=== PATIENT | female | born 1960 | race Caucasian/White ===

== ENCOUNTER 2016-11-21 02:53 | Emergency (ER) | payer SELFPAY ==
[2016-11-21] MEDS ORDERED: DEXAMETHASONE SOD PHOSPHATE 10 MG/1 ML VIAL IVPUSH ONE (03:15)
[2016-11-21 03:22] VITALS: BMI 32.2
[2016-11-21] MEDS ORDERED: SODIUM CHLORIDE 0.9% 1000 ML INFUS.BAG IV ONE ×2 (03:26→03:52)
[2016-11-21 03:30] LABS: BASOPHIL 0.3 % (0-2.0); EOSINOPHIL 1.9 % (0-4.5); MCH 32.2 pg (25.7-33.7); MCHC 34.1 g/dl (32.0-36.0); MEAN CELL VOLUME 94.6 fl (80-96); MEAN PLT VOLUME 7.8 fl (7.5-11.1); NEUTROPHILS 35.6 % (42.8-82.8); PLATELET COUNT 295 K/MM3 (134-434); WHITE BLOOD COUNT 11.5 K/mm3 (4.0-10.0)
[2016-11-21] MEDS ORDERED: DEXAMETHASONE SOD PHOSPHATE 10 MG/1 ML VIAL ONE ×2 (03:37→03:38)
[2016-11-21 03:49] LABS: PROTHROMBIN TIME (PATIENT) 11.3 SEC (9.98-11.88)
[2016-11-21 03:59] LABS: ALBUMIN 3.6 g/dl (3.4-5.0); ANION GAP 14 (8-16); BILIRUBIN,TOTAL 0.3 mg/dL (0.2-1.0); CALCIUM 8.5 mg/dL (8.5-10.1); CO2 23 mmol/L (21-32); CREATININE 0.6 mg/dL (0.55-1.02); GLUCOSE,RANDOM 165 mg/dL (74-106); SGOT/AST 30 U/L (15-37); SGPT/ALT 40 U/L (12-78); TOT PROT 6.8 g/dl (6.4-8.2)
[2016-11-21 04:02] LABS: ALK PHOS 124 U/L (45-117); CPK 318 IU/L (26-192); TROPONIN I 0.02 ng/ml (0.00-0.05)
[2016-11-21] MEDS ORDERED: KCL 10 MEQ IVPB 100 ML IVPB SCH (04:15)
[2016-11-21] MEDS ORDERED: KCL 10 MEQ IVPB 300 ML IVPB ONE (05:04)
--- NOTE | 2016-11-21 05:08 | PDOC ---
History of Present Illness - General Chief Complaint: Syncope/Near Syncope Stated Complaint: HIVES/REDNESS TO SKIN/RASH Time Seen by Provider: 11/21/16 03:00 - History of Present Illness Initial Comments: 11/21/16 04:59 CHIEF COMPLAINT: allergic reaction HISTORY OF PRESENT ILLNESS: 56 yo F with no significant PMH presents to ED with rash and syncopal episode while in waiting room of ED. Patient's family is at bedside and reports that she was having some lower abdominal pain today so she took one pill of her 's Flagyl. Not longer after ingesting the single pill, patient developed a significant rash to her entire body and came to the ER. While in the ER waiting room patient went to the bathroom, patient had a syncopal episode and fell and hit her head resulting in a small laceration to her R browbone. No recent travel or sick contacts. PAST MEDICAL HISTORY: Denies past medical history FAMILY HISTORY: Denies SOCIAL HISTORY:Denies tobacco, alcohol, illicit drug use. SURGICAL HISTORY: Denies ALLERGIES: No known drug allergies REVIEW OF SYSTEMS General/Constitutional: Denies fever or chills. Denies weakness, weight change. HEENT: Denies change in vision. Denies ear pain or discharge. Denies sore throat. Cardiovascular: Denies chest pain or shortness of breath. Respiratory: Denies cough, wheezing, or hemoptysis. Gastrointestinal: Denies nausea, vomiting, diarrhea or constipation. Denies rectal bleeding. Genitourinary: Denies dysuria, frequency, or change in urination. Musculoskeletal: Denies joint or muscle swelling or pain. Denies neck or back pain. Skin: Rash after taking Flagyl. Neurologic: Denies headache, vertigo, loss of consciousness, or loss of sensation. PHYSICAL EXAM General Appearance: Weak, lethargic appearing. No apparent distress. HEENT: No ulcerations to mucous membranes. EOMI, PERRLA, normal ENT inspection, normal voice, TMs normal, pharynx normal. No conjunctival pallor. No photophobia, scleral icterus. Neck: Supple. Trachea midline. No tenderness, rigidity, carotid bruit, stridor , lymphadenopathy, or thyromegaly. Respiratory/Chest: Lungs CTAB. Cardiovascular: RRR. S1, S2. Vascular Pulses: Dorsalis-Pedis (R): 2+, Dorsalis-Pedis (L): 2+ Gastrointestinal/Abdominal: Normal bowel sounds. Abdomen soft, non-distended. No tenderness or rebound tenderness. No organomegaly, pulsatile mass, guarding , hernia, hepatomegaly, splenomegaly. Musculoskeletal/Extremities: Normal inspection. FROM of all extremities, normal capillary refill. Pelvis Stable. No CVA tenderness. No tenderness to extremities, pedal edema, swelling, erythema or deformity. Integumentary: Erythematous, warm, generalized rash to face, chest, and lower extremities. Superficial 0.75 cm laceration to R browbone, no active bleeding. Appropriate color, dry, warm. No cyanosis, erythema, jaundice or rash Neurologic: quantitative equity head II-XII intact. Fully oriented, alert. Appropriate mood/affect. Motor strength 5/5. No appreciable EOM palsy, facial droop or sensory deficit. Past History - Past Medical History Allergies/Adverse Reactions: Allergies Allergy/AdvReac Type Severity Reaction Status Date / Time metronidazole [From Flagyl] Allergy Verified 11/21/16 05:41 Home Medications: Ambulatory Orders NK [No Known Home Medication] 11/21/16 - Suicide/Smoking/Psychosocial Hx Smoking Status: No Smoking History: Never smoked Number of Cigarettes Smoked Daily: 0 Hx Alcohol Use: No Drug/Substance Use Hx: No *Physical Exam - Vital Signs Last Vital Signs Temp Pulse Resp BP Pulse Ox 98.7 F 67 18 76/57 100 11/21/16 03:14 11/21/16 03:14 11/21/16 03:14 11/21/16 03:14 11/21/16 03:14 Heart Score/ECG Review - History History: Slightly suspicious - Electrocardiogram EKG: Normal - Age Age: 45-65 ED Treatment Course - LABORATORY CBC & Chemistry Diagram: 11/21/16 03:18 11/21/16 03:18 - ADDITIONAL ORDERS Additional order review: Laboratory Results 11/21/16 11/21/16 11/21/16 03:18 03:18 03:18 PT with INR INR Sodium Potassium Chloride Carbon Dioxide Anion Gap BUN Creatinine Creat Clearance w eGFR Random Glucose Lactic Acid 2.9 H* Calcium Magnesium 2.2 Total Bilirubin AST ALT Alkaline Phosphatase Creatine Kinase Troponin I Total Protein Albumin Blood Type O POSITIVE Antibody Screen Negative 11/21/16 11/21/16 03:18 03:18 PT with INR 11.30 INR 1.00 Sodium 140 Potassium 3.3 L Chloride 103 Carbon Dioxide 23 Anion Gap 14 BUN 13 D Creatinine 0.6 D Creat Clearance w eGFR > 60 Random Glucose 165 H D Lactic Acid Calcium 8.5 Magnesium Total Bilirubin 0.3 D AST 30 ALT 40 D Alkaline Phosphatase 124 H Creatine Kinase 318 H Troponin I 0.02 Total Protein 6.8 Albumin 3.6 Blood Type Antibody Screen 11/21/16 03:18 RBC 4.40 MCV 94.6 MCHC 34.1 RDW 13.0 MPV 7.8 Neutrophils % 35.6 L D Lymphocytes % 54.5 H D Monocytes % 7.7 Eosinophils % 1.9 Basophils % 0.3 - RADIOLOGY Radiology Studies Ordered: Category Date Time Status CHEST X-RAY PORTABLE* [RAD] Stat Radiology 11/21/16 03:32 Ordered - Medications Given in the ED: ED Medications Discontinued Medications Generic Name Dose Route Start Last Admin Trade Name Freq PRN Reason Stop Dose Admin Dexamethasone Sodium Phosphate 10 mg 11/21/16 03:15 11/21/16 03:51 Decadron Injection - IVPUSH 11/21/16 03:16 10 mg ONCE ONE Administration Diphenhydramine HCl 25 mg 11/21/16 03:09 11/21/16 03:51 Benadryl Injection - IVPUSH 11/21/16 03:10 25 mg ONCE ONE Administration Sodium Chloride 1,000 ml 11/21/16 03:26 11/21/16 03:51 Normal Saline - IV 11/21/16 03:27 1,000 ml ONCE ONE Administration Sodium Chloride 1,000 ml 11/21/16 03:52 11/21/16 04:26 Normal Saline - IV 11/21/16 03:53 1,000 ml ONCE ONE Administration Medical Decision Making - Medical Decision Making 11/21/16 05:20 56 yo F with no significant PMH presents to ED with rash and syncopal episode while in waiting room of ED. -CBC, CMP, PT/INR, card profile, lactic acid -UA, UCx -Head CT -CXR -25 mg Benadryl -10 mg Decadron 11/21/16 05:21 Laboratory Tests 11/21/16 11/21/16 11/21/16 03:18 03:18 03:18 WBC 11.5 H D Neutrophils % 35.6 L D Lymphocytes % 54.5 H D Sodium 140 Lactic Acid 2.9 H* Creatine Kinase 318 H -10 mEq K+ rider given Patient received 2 L IVF, BP now 114/76. 11/21/16 06:57 Patient CKMB 5+. Case discussed in detail with oncoming emergency provider MALINDA Mckeon including history, physical exam and ancillary studies. In brief, this patient is being seen in the ED for a chief complaint of: rash, syncope Pending results: repeat labs Plan for disposition as follows: pending Oncoming ELEONORA Mckeon has assumed care for the patient and will complete the evaluation and treatment. *DC/Admit/Observation/Transfer Diagnosis at time of Disposition: Syncope Qualifiers: Syncope type: unspecified Qualified Code(s): R55 - Syncope and collapse Allergic reaction caused by a drug Qualifiers: Encounter type: initial encounter Qualified Code(s): T78.40XA - Allergy, unspecified, initial encounter - Discharge Dispostion Disposition: HOME Condition at time of disposition: Improved - Referrals Referrals: Cinthia Lara MD [Primary Care Provider] - - Patient Instructions Printed Discharge Instructions: DI for Syncope in Adults (Fainting), DI for Adverse Drug Reaction -- Allergic Additional Instructions: Please drink plenty of water and rest. May take Tylenol for discomfort. Take Benadryl as needed for itching. Return to the nearest ED if symptoms come back. Print Language: DANISH
[2016-11-21 05:30] LABS: URINE APPEARANCE CLEAR; URINE BILIRUBIN NEGATIVE (NEGATIVE); URINE BLOOD 1+ (NEGATIVE); URINE COLOR STRAW; URINE GLUCOSE (UA) NEGATIVE (NEGATIVE); URINE KETONE NEGATIVE (NEGATIVE); URINE NITRITE NEGATIVE (NEGATIVE); URINE PROTEIN NEGATIVE (NEGATIVE); URINE UROBILINOGEN NEGATIVE mg/dL (0.2-1.0)
[2016-11-21 05:49] LABS: URINE HYALINE CAST 3 /lpf; URINE MUCUS RARE; URINE RBC 2 /hpf (0-3)
--- NOTE | 2016-11-21 07:44 | PDOC ---
*Physical Exam - Vital Signs Last Vital Signs Temp Pulse Resp BP Pulse Ox 98.7 F 62 18 114/70 100 11/21/16 03:14 11/21/16 05:25 11/21/16 05:25 11/21/16 05:25 11/21/16 03:14 ED Treatment Course - LABORATORY CBC & Chemistry Diagram: 11/21/16 03:18 11/21/16 03:18 - ADDITIONAL ORDERS Additional order review: Laboratory Results 11/21/16 11/21/16 11/21/16 04:50 03:18 03:18 PT with INR INR Sodium Potassium Chloride Carbon Dioxide Anion Gap BUN Creatinine Creat Clearance w eGFR Random Glucose Lactic Acid Calcium Magnesium 2.2 Total Bilirubin AST ALT Alkaline Phosphatase Creatine Kinase Creatine Kinase Index CK-MB (CK-2) Troponin I Total Protein Albumin Urine Color Straw Urine Appearance Clear Urine pH 7.0 Urine Protein Negative Urine Glucose (UA) Negative Urine Ketones Negative Urine Blood 1+ H Urine Nitrite Negative Urine Bilirubin Negative Urine Urobilinogen Negative Urine RBC 2 Ur Epithelial Cells Rare Hyaline Casts 3 Urine Mucus Rare Blood Type O POSITIVE Antibody Screen Negative 11/21/16 11/21/16 11/21/16 03:18 03:18 03:18 PT with INR 11.30 INR 1.00 Sodium 140 Potassium 3.3 L Chloride 103 Carbon Dioxide 23 Anion Gap 14 BUN 13 D Creatinine 0.6 D Creat Clearance w eGFR > 60 Random Glucose 165 H D Lactic Acid 2.9 H* Calcium 8.5 Magnesium Total Bilirubin 0.3 D AST 30 ALT 40 D Alkaline Phosphatase 124 H Creatine Kinase 318 H Creatine Kinase Index 1.5 CK-MB (CK-2) 5.008 H Troponin I 0.02 Total Protein 6.8 Albumin 3.6 Urine Color Urine Appearance Urine pH Urine Protein Urine Glucose (UA) Urine Ketones Urine Blood Urine Nitrite Urine Bilirubin Urine Urobilinogen Urine RBC Ur Epithelial Cells Hyaline Casts Urine Mucus Blood Type Antibody Screen 11/21/16 03:18 RBC 4.40 MCV 94.6 MCHC 34.1 RDW 13.0 MPV 7.8 Neutrophils % 35.6 L D Lymphocytes % 54.5 H D Monocytes % 7.7 Eosinophils % 1.9 Basophils % 0.3 - Medications Given in the ED: ED Medications Discontinued Medications Generic Name Dose Route Start Last Admin Trade Name Freq PRN Reason Stop Dose Admin Dexamethasone Sodium Phosphate 10 mg 11/21/16 03:15 11/21/16 03:51 Decadron Injection - IVPUSH 11/21/16 03:16 10 mg ONCE ONE Administration Diphenhydramine HCl 25 mg 11/21/16 03:09 11/21/16 03:51 Benadryl Injection - IVPUSH 11/21/16 03:10 25 mg ONCE ONE Administration Potassium Chloride 100 mls @ 100 mls/hr 11/21/16 04:15 11/21/16 05:12 Potassium Chloride 10 Meq Premix Ivpb - IVPB 11/21/16 05:14 100 mls/hr Q60M VINEET Administration Sodium Chloride 1,000 ml 11/21/16 03:26 11/21/16 03:51 Normal Saline - IV 11/21/16 03:27 1,000 ml ONCE ONE Administration Sodium Chloride 1,000 ml 11/21/16 03:52 11/21/16 04:26 Normal Saline - IV 11/21/16 03:53 1,000 ml ONCE ONE Administration Medical Decision Making - Medical Decision Making 11/21/16 07:44 Patient received in sign out from MALINDA Rodríguez. Patient here for syncopal episode after developing anallergic pruritic rash after ingesting Flagyl. Patient arrived here with a small laceration to her right brow bone and had received medication for her allergic reaction including a cardiac workup. Lactic acid slightly elevated along with CKs. Patient's head CT is negative for acute findings. Patient awaiting repeat EKG, cardiac profile and lactic acid. Patient otherwise asymptomatic only complaining of mild generalized fatigue. 11/21/16 07:44 Laboratory Tests 11/21/16 11/21/16 11/21/16 03:18 03:18 03:18 WBC 11.5 H D Hgb 14.2 D Hct 41.7 D Neutrophils % 35.6 L D Lactic Acid 2.9 H* Creatine Kinase 318 H CK-MB (CK-2) 5.008 H Troponin I 0.02 11/21/16 09:44 Laboratory Tests 11/21/16 11/21/16 11/21/16 04:50 07:54 07:54 Lactic Acid 2.0 Creatine Kinase 295 H CK-MB (CK-2) 4.937 H Urine Blood 1+ H Urine Urobilinogen Negative Urine WBC 15 Patient will be discharged home with recommendations to follow up with her PCP and take Benadryl as needed or return to ED if symptoms return. *DC/Admit/Observation/Transfer Diagnosis at time of Disposition: Syncope Qualifiers: Syncope type: unspecified Qualified Code(s): R55 - Syncope and collapse; R55 - Syncope and collapse Allergic reaction to drug Qualifiers: Encounter type: initial encounter Qualified Code(s): T78.40XA - Allergy, unspecified, initial encounter; T78.40XA - Allergy, unspecified, initial encounter - Discharge Dispostion Disposition: HOME Condition at time of disposition: Improved - Referrals Referrals: Cinthia Lara MD [Primary Care Provider] - - Patient Instructions Printed Discharge Instructions: DI for Syncope in Adults (Fainting), DI for Adverse Drug Reaction -- Allergic Additional Instructions: Please drink plenty of water and rest. May take Tylenol for discomfort. Take Benadryl as needed for itching. Return to the nearest ED if symptoms come back. - Post Discharge Activity
[2016-11-21 08:32] LABS: URINE WBC 15 /hpf (3-5)
[2016-11-21 08:40] LABS: TROPONIN I 0.03 ng/ml (0.00-0.05)
[2016-11-21 09:28] VITALS: TEMP 97.7
[2016-11-21 10:17] VITALS: BP 102/52; PULSE 68
--- NOTE | 2016-11-21 11:00 | EKG ---
Test Reason : Blood Pressure : / mmHG Vent. Rate : 068 BPM Atrial Rate : 068 BPM P-R Int : 172 ms QRS Dur : 080 ms QT Int : 414 ms P-R-T Axes : 043 -10 022 degrees QTc Int : 440 ms NORMAL SINUS RHYTHM NORMAL ECG WHEN COMPARED WITH ECG OF 21-NOV-2016 03:04, NO SIGNIFICANT CHANGE WAS FOUND Confirmed by KAREL BROOKS MD ([id number]) on 11/21/2016 11:00:01 AM Referred By: Confirmed By:KAREL BROOKS MD
--- NOTE | 2016-11-21 11:01 | EKG ---
Test Reason : Blood Pressure : / mmHG Vent. Rate : 068 BPM Atrial Rate : 068 BPM P-R Int : 168 ms QRS Dur : 080 ms QT Int : 436 ms P-R-T Axes : 041 -05 019 degrees QTc Int : 463 ms NORMAL SINUS RHYTHM LOW VOLTAGE QRS WHEN COMPARED WITH ECG OF 23-OCT-2012 13:44, NO SIGNIFICANT CHANGE WAS FOUND Confirmed by KAREL BROOKS MD ([id number]) on 11/21/2016 11:00:54 AM Referred By: Confirmed By:KAREL BROOKS MD
[2016-11-21 12:42] LABS: URINE LEUK ESTERASE 2+ (NEGATIVE)
== END 2016-11-21 10:15 | disposition home or self-care (01) ==
LOC: JER 02:53
PROC: 3E033GC Introduction of Other Therapeutic Substance into Peripheral Vein, Percutaneous Approach (ICD-10-PCS; principal; 2016-11-21)
PROC: 3E0333Z Introduction of Anti-inflammatory into Peripheral Vein, Percutaneous Approach (ICD-10-PCS; 2016-11-21)
DX: R55 Syncope and collapse (principal); L27.0 Generalized skin eruption due to drugs and medicaments taken internally; T37.3X5A Adverse effect of other antiprotozoal drugs, initial encounter; S01.111A Laceration without foreign body of right eyelid and periocular area, initial encounter; W18.39XA Other fall on same level, initial encounter; Y93.89 Activity, other specified; Y92.238 Other place in hospital as the place of occurrence of the external cause
CPT/HCPCS: 36415; 70450-TC; 71010-TC; 80053; 81003; 81015; 82550; 82553; 83605; 83735; 84484; 85025; 85610; 86850; 86900; 86901; 87086; 93005; 93010; 99283-25